=== PATIENT | male | born 1975 | race African-American/Black ===

== ENCOUNTER 2024-04-20 12:55 | Emergency (ER) | payer MEDICAID ==
[~2024-04-20] VITALS: Ht 182.9 cm; Wt 106.6 kg
[~2024-04-20 12:55] MED LIST: DOXY100C5 MT; GABA-532 MT; HYDR25TA78 MT; TAMS-11 MT; TAMS-11 PO
[2024-04-20 13:01] VITALS: O2SAT 99
[2024-04-20 13:08] VITALS: TEMP 98.4; O2SAT 100
[2024-04-20 14:34] VITALS: BP 178/101; PULSE 87; RESP 18
[2024-04-20] MEDS: OXYCODONE HCL/ACETAMINOPHEN 5/325MG TABLET PO ONE (14:34)
== END 2024-04-20 15:26 | disposition left against medical advice (07) ==
LOC: ER 12:55
DX: R51.9 Headache, unspecified (principal); J45.909 Unspecified asthma, uncomplicated
CPT/HCPCS: 99283